=== PATIENT | male | born 1955 | race Caucasian/White ===

== ENCOUNTER 2020-04-10 07:31 | Emergency (ER) | payer OTHER ==
[~2020-04-10] VITALS: Ht 172.7 cm; Wt 104.3 kg
[~2020-04-10 07:31] MED LIST: HYDACE5 PO; IBUP800 PO
[2020-04-10] MEDS ORDERED: PROC5 PO (08:43)
[2020-04-10 08:55] LABS: BASOPHILS ABSOLUTE AUTO 0.02 K/mm3 (0.00-0.23); BASOPHILS PERCENT AUTO 0 % (0-2); EOSINOPHILS ABSOLUTE AUTO 0.01 K/mm3 (0.00-0.68); EOSINOPHILS PERCENT AUTO 0 % (0-6); Hematocrit 44.7 % (37.0-53.0); Hemoglobin 15.1 g/dL (13.5-17.5); IMMATURE GRAN ABSOLUTE AUTO 0.03 K/mm3 (0.00-0.10); IMMATURE GRAN PERCENT AUTO 1 % (0-1); LYMPHOCYTES ABSOLUTE AUTO 1.01 K/mm3 (0.84-5.20); LYMPHOCYTES PERCENT AUTO 18 % (21-46); MONOCYTES ABSOLUTE AUTO 0.55 K/mm3 (0.16-1.47); MONOCYTES PERCENT AUTO 10 % (4-13); Mean Corpuscular HGB 28.6 pg (26.0-34.0); Mean Corpuscular HGB Conc 33.8 g/dL (31.5-36.5); Mean Corpuscular Volume 85 fL (80-100); Mean Platelet Volume 9.8 fL (9.1-12.4); NEUTROPHILS ABSOLUTE AUTO 4.01 K/mm3 (1.96-9.15); NEUTROPHILS PERCENT AUTO 71 % (41-73); Platelet Count 275 K/mm3 (150-400); RDW Coefficient Variation 13.4 % (11.7-14.2); RDW Standard Deviation 41.8 fL (35.1-46.3); Red Blood Cell Count 5.28 M/mm3 (4.30-5.90); White Blood Cell Count 5.63 K/mm3 (4.00-11.30)
[2020-04-10 09:08] LABS: Albumin, Blood 3.5 g/dL (3.4-5.0); Albumin/Globulin Ratio 0.8 (0.8-1.8); Bilirubin, Total 0.7 mg/dL (0.1-1.0); Bun/Creatinine Ratio 10.1 (12.0-20.0); Calcium, Blood 8.7 mg/dL (8.5-10.1); Creatinine, Blood 1.29 mg/dL (0.60-1.20); Globulin, Blood 4.5 g/dL (2.2-4.0); Potassium, Blood 2.9 mmol/L (3.5-5.5)
[2020-04-10] MEDS ORDERED: POTA20PAC PO (09:18)
== END 2020-04-10 09:31 | disposition home or self-care (01) ==
LOC: ER 07:31
PROVIDERS: Emergency Medicine
DX: U07.1 COVID-19 (principal); R11.0 Nausea; R61 Generalized hyperhidrosis; R63.0 Anorexia; E87.6 Hypokalemia
CPT/HCPCS: 36415; 80053; 85025; 96360; 99283-25; A9270; J7030

== ENCOUNTER 2022-10-31 19:32 | Emergency (ER) | payer OTHER ==
[~2022-10-31] VITALS: Ht 172.7 cm; Wt 97.5 kg
[~2022-10-31 19:32] MED LIST changes: +POTA20PAC PO; +PROC5 PO
[2022-10-31] MEDS ORDERED: OXYM.05NI (20:13)
[2022-10-31] MEDS ORDERED: MUPIROCIN15 GM TOP (20:13)
[2022-10-31] MEDS ORDERED: Flonase 0.05% N16 GM (20:14)
[2022-10-31] MEDS ORDERED: OXAYDO5 M2 PO (20:15)
[2022-10-31] MEDS ORDERED: Hydrochloroth12.5 MG PO (20:16)
[2022-10-31] MEDS ORDERED: TAMS.4ER PO (20:17)
[2022-10-31] MEDS ORDERED: ATOR20 PO (20:19)
[2022-10-31] MEDS ORDERED: LEVSOD112 PO (20:19)
[2022-10-31] MEDS ORDERED: LIDOCAINE15 GM TOP (20:22)
[2022-10-31] MEDS ORDERED: AMLO10 PO (20:23)
[2022-10-31] MEDS ORDERED: METO25ER PO (20:24)
[2022-10-31] MEDS ORDERED: OMEP20ER PO (20:25)
[2022-10-31] MEDS ORDERED: HYDROCODONE-AC1 EA10 PO (20:35)
[2022-10-31 20:37] LABS: BASOPHILS ABSOLUTE AUTO 0.05 K/mm3 (0.00-0.23); BASOPHILS PERCENT AUTO 0 % (0-2); EOSINOPHILS ABSOLUTE AUTO 0.07 K/mm3 (0.00-0.68); EOSINOPHILS PERCENT AUTO 1 % (0-6); Hematocrit 40.3 % (37.0-53.0); Hemoglobin 13.5 g/dL (13.5-17.5); IMMATURE GRAN ABSOLUTE AUTO 0.06 K/mm3 (0.00-0.10); IMMATURE GRAN PERCENT AUTO 1 % (0-1); LYMPHOCYTES ABSOLUTE AUTO 1.54 K/mm3 (0.84-5.20); LYMPHOCYTES PERCENT AUTO 13 % (21-46); MONOCYTES ABSOLUTE AUTO 0.94 K/mm3 (0.16-1.47); MONOCYTES PERCENT AUTO 8 % (4-13); Mean Corpuscular HGB 28.1 pg (26.0-34.0); Mean Corpuscular HGB Conc 33.5 g/dL (31.5-36.5); Mean Corpuscular Volume 84 fL (80-100); NEUTROPHILS ABSOLUTE AUTO 9.47 K/mm3 (1.96-9.15); NEUTROPHILS PERCENT AUTO 78 % (41-73); Platelet Count 283 K/mm3 (150-400); White Blood Cell Count 12.13 K/mm3 (4.00-11.30)
[2022-10-31 21:01] LABS: Bun/Creatinine Ratio 15.2 (12.0-20.0); Calcium, Blood 9.5 mg/dL (8.5-10.1); Creatinine, Blood 1.25 mg/dL (0.60-1.20); Potassium, Blood 3.9 mmol/L (3.5-5.5); Thyroid Stimulating Hormone 2.81 uIU/mL (0.360-4.800)
[2022-10-31 22:00] VITALS: BP 140/86
== END 2022-10-31 22:28 | disposition home or self-care (01) ==
LOC: ER 19:32
PROVIDERS: Emergency Medicine
DX: R00.2 Palpitations (principal); R00.0 Tachycardia, unspecified; I10 Essential (primary) hypertension; Z88.8 Allergy status to other drugs, medicaments and biological substances; Z79.899 Other long term (current) drug therapy
CPT/HCPCS: 71260; 80048; 83880; 84443; 84484; 85025; 93005; 93010; Q9967

== ENCOUNTER 2024-03-02 08:20 | Day surgery (SDC) | payer OTHER ==
[~2024-03-02] VITALS: Ht 172.7 cm; Wt 107.1 kg
[~2024-03-02 08:20] MED LIST changes: +AMLO10 PO; +ATOR20 PO; +Flonase 0.05% N16 GM; +HYDROCODONE-AC1 EA10 PO; +Hydrochloroth12.5 MG PO; +LEVSOD112 PO; +LIDOCAINE15 GM TOP; +Lactated Ringer's 1,000 ML IV ONE; +METO25ER PO; +MUPIROCIN15 GM TOP; +OMEP20ER PO; +OXAYDO5 M2 PO; +OXYM.05NI; +TAMS.4ER PO
[2024-03-02] MEDS ORDERED: LOSA25 PO (08:45)
[2024-03-02] MEDS ORDERED: CeFAZolin Sodium 2,000 MG VIAL ONE (08:56)
[2024-03-02] MEDS ORDERED: NS 50 ML IV ONE (08:57)
[2024-03-02] MEDS ORDERED: Lactated Ringer's 1,000 ML IV ONE (09:05)
[2024-03-02] MEDS ORDERED: FentaNYL Citrate 50 MCG/ML 2 ML Injection ONE ×3 (09:08→10:49)
[2024-03-02] MEDS ORDERED: Midazolam HCl 1MG / ML 2ML Vial ONE (09:09)
--- NOTE | 2024-03-02 09:34 | NUR ---
03/02/24 09 Madiha Morales TIME OUT 921 BLOCK COMPLETED 929
[2024-03-02] MEDS ORDERED: propofoL 20 ML IV ONE (09:35)
--- NOTE | 2024-03-02 11:06 | NUR ---
03/02/24 1106 Emily Moreno PAIN LEVEL DROPPED TO A 4 AFTER 1ST DOSE OF FENTANYL.
[2024-03-02 11:10] VITALS: BP 139/85
== END 2024-03-02 11:36 | disposition home or self-care (01) ==
LOC: ORSCSDS 08:20
PROVIDERS: Orthopaedic Surgery
PROC: 0RQS0ZZ Repair Right Carpometacarpal Joint, Open Approach (ICD-10-PCS; principal; 2024-03-02 09:45)
PROC: 0LN50ZZ Release Right Lower Arm and Wrist Tendon, Open Approach (ICD-10-PCS; principal; 2024-03-02 09:45)
DX: M18.11 Unilateral primary osteoarthritis of first carpometacarpal joint, right hand (principal); M65.4 Radial styloid tenosynovitis [de Quervain]; I10 Essential (primary) hypertension; K21.9 Gastro-esophageal reflux disease without esophagitis; E78.5 Hyperlipidemia, unspecified; Z79.899 Other long term (current) drug therapy
CPT/HCPCS: C1713; J0690; J2250; J2704; J3010; J7120

== ENCOUNTER 2024-08-10 15:00 | Emergency (ER) | payer OTHER ==
[~2024-08-10] VITALS: Ht 172.7 cm; Wt 108.9 kg
[~2024-08-10 15:00] MED LIST changes: +LOSA25 PO; -Lactated Ringer's 1,000 ML IV ONE
[2024-08-10 15:30] VITALS: BP 131/77
[2024-08-10] MEDS ORDERED: Ondansetron HCl 2 MG / ML 2ML Vial IV PRN (15:40)
[2024-08-10 15:55] LABS: BASOPHILS ABSOLUTE AUTO 0.07 K/mm3 (0.00-0.23); BASOPHILS PERCENT AUTO 1 % (0-2); EOSINOPHILS ABSOLUTE AUTO 0.23 K/mm3 (0.00-0.68); EOSINOPHILS PERCENT AUTO 2 % (0-6); Hematocrit 38.3 % (37.0-53.0); Hemoglobin 12.6 g/dL (13.5-17.5); IMMATURE GRAN PERCENT AUTO 1 % (0-1); LYMPHOCYTES ABSOLUTE AUTO 1.45 K/mm3 (0.84-5.20); LYMPHOCYTES PERCENT AUTO 12 % (21-46); MONOCYTES ABSOLUTE AUTO 0.96 K/mm3 (0.16-1.47); MONOCYTES PERCENT AUTO 8 % (4-13); Mean Corpuscular HGB 27.2 pg (26.0-34.0); Mean Corpuscular HGB Conc 32.9 g/dL (31.5-36.5); Mean Corpuscular Volume 83 fL (80-100); Mean Platelet Volume 9.3 fL (9.1-12.4); NEUTROPHILS ABSOLUTE AUTO 9.54 K/mm3 (1.96-9.15); NEUTROPHILS PERCENT AUTO 77 % (41-73); Platelet Count 263 K/mm3 (150-400); RDW Coefficient Variation 16.8 % (11.7-14.2); RDW Standard Deviation 49.6 fL (35.1-46.3); Red Blood Cell Count 4.63 M/mm3 (4.30-5.90); White Blood Cell Count 12.35 K/mm3 (4.00-11.30)
[2024-08-10 16:10] LABS: Albumin/Globulin Ratio 0.9 (0.8-1.8); Bilirubin, Total 0.4 mg/dL (0.1-1.0); Bun/Creatinine Ratio 19.6 (12.0-20.0); Calcium, Blood 9.2 mg/dL (8.5-10.1); Creatinine, Blood 1.38 mg/dL (0.60-1.20); Globulin, Blood 4.3 g/dL (2.2-4.0); Potassium, Blood 3.8 mmol/L (3.5-5.5); Total Protein, Blood 8.3 g/dL (6.4-8.2)
[2024-08-10] MEDS ORDERED: Ketorolac Tromethamine 30mg Vial IV ONE (16:15)
[2024-08-10] MEDS ORDERED: IBUP600 PO (17:12)
[2024-08-10] MEDS ORDERED: RX Prepack 6 Tabs Oxycodone 5mg UD ONE (17:55)
== END 2024-08-10 18:03 | disposition home or self-care (01) ==
LOC: ER 15:00
PROVIDERS: Emergency Medicine
DX: S20.219A Contusion of unspecified front wall of thorax, initial encounter (principal); S60.222A Contusion of left hand, initial encounter; S90.01XA Contusion of right ankle, initial encounter; V23.49XA Other motorcycle driver injured in collision with car, pick-up truck or van in traffic accident, initial encounter; I10 Essential (primary) hypertension; Z88.8 Allergy status to other drugs, medicaments and biological substances; Z79.890 Hormone replacement therapy; Z79.899 Other long term (current) drug therapy
CPT/HCPCS: 71046; 73110; 73130; 73590; 73610; 80053; 83690; 84484; 85025; 93005; 93010; 96374; 96375; 99285-25; A9270; J1885; J2405